=== PATIENT | female | born 1965 | race Caucasian/White ===

== ENCOUNTER 2024-01-07 11:37 | Outpatient (CLI) | payer MEDICAID ==
[~2024-01-07 11:37] MED LIST: ACET-2119 PO; ALBU18HF2 INH; AZIT250T PO; CETI-90 PO; IBUP-1984 PO; MULT-620 PO; OMEP40CA21 PO
== END 2024-01-07 23:59 | disposition home or self-care (01) ==
LOC: LAB 11:37
PROVIDERS: ATTEND Family Medicine
DX: M47.812 Spondylosis without myelopathy or radiculopathy, cervical region (principal); M54.2 Cervicalgia
CPT/HCPCS: 72040

== ENCOUNTER 2024-08-22 12:08 | Outpatient (CLI) | payer MEDICAID | END 2024-08-22 23:59 | disposition home or self-care (01) | LOC: NM 12:08 | PROVIDERS: ATTEND Podiatrist | DX: M79.671 Pain in right foot (principal); M79.672 Pain in left foot | CPT/HCPCS: 78315; A9503 ==

== ENCOUNTER 2024-09-04 09:41 | Emergency (ER) | payer MEDICAID ==
[~2024-09-04] VITALS: Ht 162.6 cm; Wt 99.0 kg
[2024-09-04 10:01] VITALS: TEMP 97.2
[2024-09-04 12:49] LABS: BASOPHILS % (AUTO) 0.6 % (0-1); EOSINOPHILS # (AUTO) 0.1 X10'3 (0-0.9); EOSINOPHILS % (AUTO) 4.2 % (0-6); HEMOGLOBIN 14.8 g/dl (12.0-16.0); LYMPHOCYTES # (AUTO) 1.4 X10'3 (1.1-4.8); LYMPHOCYTES % (AUTO) 39.3 % (21-51); MEAN CORPUSCULAR HEMOGLOBIN 28.1 PG (27.0-31.0); MEAN CORPUSCULAR HGB CONC 33.7 g/dL (33.0-36.5); MEAN CORPUSCULAR VOLUME 83.6 FL (78-98); MEAN PLATELET VOLUME 8.6 FL (7.4-10.4); MONOCYTES # (AUTO) 0.4 X10'3 (0-0.9); MONOCYTES % (AUTO) 11.5 % (2-12); NEUTROPHILS # (AUTO) 1.6 X10'3 (1.8-7.7); NEUTROPHILS % (AUTO) 44.4 % (42-75); PLATELET COUNT 187 X10'3 (140-440); RED BLOOD COUNT 5.26 X10'6 (4.20-5.60); RED CELL DISTRIBUTION WIDTH 14.1 % (11.5-14.5); WHITE BLOOD COUNT 3.6 X10'3 (4.5-11.0)
[2024-09-04 13:15] LABS: ALANINE AMINOTRANSFERASE 33 U/L (12-78); ALBUMIN 3.8 G/DL (3.4-5.0); ALKALINE PHOSPHATASE 85 IU/L (46-116); ANION GAP 12 (8-16); ASPARTATE AMINO TRANSFERASE 41 U/L (10-37); BILIRUBIN,TOTAL 0.4 MG/DL (0.1-1.0); BLOOD UREA NITROGEN 9 MG/DL (7-18); CALCIUM 9.3 MG/DL (8.5-10.1); CHLORIDE 101 MMOL/L (99-107); CREATININE 0.69 MG/DL (0.40-0.90); GLUCOSE 95 MG/DL (70-104); LIPASE 53 U/L (16-77); POTASSIUM 3.2 MMOL/L (3.5-5.1); SODIUM 135 MMOL/L (135-145); TOTAL CARBON DIOXIDE 22.1 MMOL/L (24-32); TOTAL PROTEIN 7.7 G/DL (6.4-8.2); eCRCL 77 ML/MIN; eGFR 87 ML/MIN
[2024-09-04 13:46] VITALS: BP 104/62; PULSE 70; RESP 11; O2SAT 96
[2024-09-04 13:51] LABS: BILIRUBIN,URINE NEGATIVE (Neg); COLOR,URINE YELLOW (Yellow); GLUCOSE, URINE NEGATIVE (Neg); KETONES,URINE NEGATIVE (Neg); LEUKOCYTE ESTERASE ,URINE NEGATIVE (Neg); NITRITES, URINE NEGATIVE (Neg); OCCULT BLOOD,URINE NEGATIVE (Neg); PROTEIN,URINE NEGATIVE (Neg); UROBILINOGEN,URINE 0.2 E.U/dL (0.2-1.0)
[2024-09-04] MEDS ORDERED: SUCR1TAB PO (13:56)
[2024-09-04 14:04] LABS: UA COLLECTION TYPE NON-SPECIFIED
[2024-09-04 14:05] LABS: CLARITY,URINE SLIGHTLY CLOUDY (Clear)
[2024-09-04 14:06] LABS: BACTERIA,URINE NONE SEEN /HPF (Neg); HYALINE CASTS 0-3 /LPF (NEGATIVE); RBC,URINE NONE SEEN /HPF (0-2); SQUAMOUS EPITHELIAL CELL,UR FEW /LPF (FEW); WBC,URINE 0-4 /HPF (0-4)
== END 2024-09-04 14:09 | disposition home or self-care (01) ==
LOC: ER 09:41
DX: R10.11 Right upper quadrant pain (principal); K21.9 Gastro-esophageal reflux disease without esophagitis; I10 Essential (primary) hypertension; E11.9 Type 2 diabetes mellitus without complications; Z88.2 Allergy status to sulfonamides; Z88.5 Allergy status to narcotic agent; Z88.8 Allergy status to other drugs, medicaments and biological substances; Z90.49 Acquired absence of other specified parts of digestive tract; Z90.710 Acquired absence of both cervix and uterus; Z95.0 Presence of cardiac pacemaker
CPT/HCPCS: 36415; 76700; 80053; 81001; 83605; 83690; 85025; 99284

== ENCOUNTER 2024-09-19 08:24 | Day surgery (SDC) | payer MEDICAID ==
[2024-09-16 09:56] LABS: BASOPHILS % (AUTO) 0.7 % (0-1); EOSINOPHILS # (AUTO) 0.2 X10'3 (0-0.9); EOSINOPHILS % (AUTO) 3.5 % (0-6); LYMPHOCYTES # (AUTO) 1.5 X10'3 (1.1-4.8); LYMPHOCYTES % (AUTO) 27.1 % (21-51); MEAN CORPUSCULAR HEMOGLOBIN 28.3 PG (27.0-31.0); MEAN CORPUSCULAR HGB CONC 33.7 g/dL (33.0-36.5); MEAN CORPUSCULAR VOLUME 84.1 FL (78-98); MEAN PLATELET VOLUME 8.9 FL (7.4-10.4); MONOCYTES # (AUTO) 0.5 X10'3 (0-0.9); MONOCYTES % (AUTO) 9.3 % (2-12); NEUTROPHILS # (AUTO) 3.3 X10'3 (1.8-7.7); NEUTROPHILS % (AUTO) 59.4 % (42-75); PRE OP HEMATOCRIT 42.5 % (35.0-45.0); PRE OP HEMOGLOBIN 14.3 g/dL (12.0-16.0); PRE OP PLATELET COUNT 211 X10'3 (140-440); PRE OP WHITE BLOOD COUNT 5.6 10'3 (4.8-10.8); RED BLOOD COUNT 5.06 X10'6 (4.20-5.60); RED CELL DISTRIBUTION WIDTH 13.9 % (11.5-14.5)
[2024-09-16 10:08] LABS: ALBUMIN 3.7 G/DL (3.4-5.0); ALBUMIN/GLOBULIN RATIO 1.1 (1.1-1.5); ALKALINE PHOSPHATASE 70 IU/L (46-116); BLOOD UREA NITROGEN 13 MG/DL (7-18); BUN/CREATININE RATIO 17.3 (10.0-20.0); CHLORIDE 104 MMOL/L (99-107); CREATININE 0.75 MG/DL (0.40-0.90); PRE OP ALT 42 U/L (30-65); PRE OP ANION GAP 9 (8-16); PRE OP AST 23 U/L (10-37); PRE OP BILIRUB, TOTAL 0.6 MG/DL (0.0-1.0); PRE OP GLUCOSE 96 MG/DL (70-104); PRE OP POTASSIUM 3.8 MMOL/L (3.4-5.1); PRE OP SODIUM 140 MMOL/L (135-145); TOTAL CARBON DIOXIDE 27.1 MMOL/L (24-32); TOTAL PROTEIN 7.2 G/DL (6.4-8.2); eGFR 79 ML/MIN
[~2024-09-19] VITALS: Ht 162.6 cm; Wt 97.3 kg
[2024-09-19] VITALS (9 sets, daily range): BP systolic 129–150; BP diastolic 79–96; PULSE 75–85; RESP 14–21; TEMP 98; O2SAT 96–99
[2024-09-19] MEDS: ceFOXitin sod/dextrose 2g/50ml 50 ML IV ONE (05:30)
[~2024-09-19 08:24] MED LIST changes: -ACET-2119 PO; -ALBU18HF2 INH; -AZIT250T PO; -CETI-90 PO; +CETI-91 PO; -IBUP-1984 PO; +LOSA1TAB41 PO; -MULT-620 PO; +OMEP20CA15 PO; -OMEP40CA21 PO
[2024-09-19] MEDS: famotidine 20mg tablet PO ONE (09:28)
[2024-09-19] MEDS: ringers solution, lacted 1,000 ML IV SCH (09:29)
[2024-09-19 09:37] LABS: PRE OP PROTIME 10.4 SECONDS (9.0-12.0)
[2024-09-19 10:23] LABS: BILIRUBIN,URINE NEGATIVE (Neg); CLARITY,URINE CLEAR (Clear); COLOR,URINE YELLOW (Yellow); GLUCOSE, URINE NEGATIVE (Neg); KETONES,URINE NEGATIVE (Neg); LEUKOCYTE ESTERASE ,URINE NEGATIVE (Neg); NITRITES, URINE NEGATIVE (Neg); OCCULT BLOOD,URINE NEGATIVE (Neg); PROTEIN,URINE NEGATIVE (Neg); UROBILINOGEN,URINE 0.2 E.U/dL (0.2-1.0)
[2024-09-19] MEDS ORDERED: BUPIVAcaine 2.5mg/ml inj 50ml vial (contains preservative) ONE (10:24)
[2024-09-19 10:25] LABS: UA COLLECTION TYPE CLN CATCH MIDSTREAM
[2024-09-19] MEDS ORDERED: sevoflurane 250ml liquid IH ONE (10:26)
[2024-09-19] MEDS ORDERED: midazolam 1 mg/ML 2ml injection ONE (10:32)
[2024-09-19] MEDS ORDERED: fentaNYL /PF 50mcg/ml 5ml ampule ONE (10:32)
[2024-09-19] MEDS ORDERED: LIDOcaine 2% (20mg/ml) 5ml vial ONE (10:49)
[2024-09-19] MEDS ORDERED: dexamethasone sod phosphate 4mg/ml inj. ONE (10:49)
[2024-09-19] MEDS ORDERED: rocuronium 10mg/ml inj IV ONE (10:49)
[2024-09-19] MEDS ORDERED: ondansetron/PF 4mg/2ml inj ONE (10:50)
[2024-09-19] MEDS ORDERED: propofol inj 20 ML IV ONE (10:50)
[2024-09-19] MEDS ORDERED: HYDROmorphone/PF 0.2 MG/ML SYRINGE IV PRN (11:05)
[2024-09-19] MEDS ORDERED: hydrALAZINE 20mg/ml inj. IV PRN (11:05)
[2024-09-19] MEDS ORDERED: labetalol 20mg/4ml (5mg/ml) syringe IV PRN (11:05)
[2024-09-19] MEDS ORDERED: meperidine/PF 25mg/ml syringe IV PRN ×2 (11:05)
[2024-09-19] MEDS ORDERED: ondansetron/PF 4mg/2ml inj IV PRN (11:05)
[2024-09-19] MEDS ORDERED: proCHLORperazine 10 MG/2 ml inj IV PRN (11:05)
[2024-09-19] MEDS ORDERED: ringers solution, lacted 1,000 ML IV SCH (11:05)
[2024-09-19] MEDS ORDERED: neostigmine methylsulfate 1 MG/ML 10ml vial ONE (11:26)
[2024-09-19] MEDS ORDERED: glycopyrrolate 0.2mg/ml inj ONE (11:26)
[2024-09-19] MEDS ORDERED: sugammadex 200mg/2ml injection IV ONE (11:34)
[2024-09-19] MEDS: acetaminophen 1,000mg/100ml IV 100 ML IV ONE (11:41)
[2024-09-19] MEDS: meperidine/PF 25mg/ml syringe IV PRN (11:42)
[2024-09-19] MEDS: ketorolac trometh 30MG/ML vial 30 MG/ML VIAL IV ONE (11:59)
[2024-09-19] MEDS: HYDROmorphone/PF 0.2 MG/ML SYRINGE IV PRN (12:37)
== END 2024-09-19 13:01 | disposition home or self-care (01) ==
LOC: PAS 08:24
PROVIDERS: ATTEND Surgery
DX: K80.10 Calculus of gallbladder with chronic cholecystitis without obstruction (principal); K21.9 Gastro-esophageal reflux disease without esophagitis; M19.90 Unspecified osteoarthritis, unspecified site; I10 Essential (primary) hypertension; G43.909 Migraine, unspecified, not intractable, without status migrainosus; Z79.899 Other long term (current) drug therapy; Z98.890 Other specified postprocedural states; Z79.01 Long term (current) use of anticoagulants; Z98.51 Tubal ligation status; Z88.2 Allergy status to sulfonamides; Z88.6 Allergy status to analgesic agent; Z88.8 Allergy status to other drugs, medicaments and biological substances; Z87.891 Personal history of nicotine dependence
CPT/HCPCS: 36415; 47562; 71045; 80053; 81003; 82948; 85025; 85610; 85730; 86885; 86900; 86901; 93005; J0131; J0694; J1100; J1171; J1885; J2003; J2175; J2250; J2405; J2704; J2710; J3010; J3490; J7030; J7120; S2900; Z7506; Z7508; Z7512; A4215; A4618; A7000

== ENCOUNTER 2024-09-24 09:48 | Emergency (ER) | payer MEDICAID ==
[~2024-09-24] VITALS: Ht 162.6 cm; Wt 97.7 kg
[2024-09-24] MEDS: methylnaltrexone br 12mg/0.6ml inj***SubQ only SQ ONE (13:36)
[2024-09-24] MEDS: magnesium citrate 296ml oral solution PO ONE (13:40)
[2024-09-24] MEDS ORDERED: GOLYS PO (14:31)
[2024-09-24 15:10] VITALS: BP 158/90; PULSE 69; RESP 16; O2SAT 100
== END 2024-09-24 15:14 | disposition home or self-care (01) ==
LOC: ER 09:49
DX: G89.18 Other acute postprocedural pain (principal); K59.00 Constipation, unspecified; I10 Essential (primary) hypertension; K21.9 Gastro-esophageal reflux disease without esophagitis; Z88.2 Allergy status to sulfonamides; Z88.5 Allergy status to narcotic agent; Z88.8 Allergy status to other drugs, medicaments and biological substances; Z90.49 Acquired absence of other specified parts of digestive tract; Z90.710 Acquired absence of both cervix and uterus; Z95.0 Presence of cardiac pacemaker
CPT/HCPCS: 74022; 96372; 99283; J2212